=== PATIENT | female | born 1960 | race Caucasian/White ===

== ENCOUNTER 2019-11-11 15:55 | Emergency (ER) | payer OTHER, SELFPAY ==
[2019-11-11 16:24] VITALS: BP 128/74; PULSE 51; RESP 20; TEMP 36.8; O2SAT 98
--- NOTE | 2019-11-11 16:47 | ED.GENADULT ---
HPI - General Adult General Chief complaint: Wound/Laceration Stated complaint: L/hand swollen Time Seen by Provider: 11/11/19 16:48 Source: patient and RN notes reviewed Mode of arrival: ambulatory Limitations: no limitations History of Present Illness HPI narrative: 59-year-old female presents with complaints of redness, warmth, tenderness, and swelling to left 3rd knuckle for up to 7 days. Initially Danielle believes she might have been scratched by one of her cats approximately 30 days ago causing tenderness and swelling. Increase symptoms of redness, warmth, and tenderness now. Ice without relief. Denies radiation of tenderness, redness, or swelling. No exacerbating factors. Denies numbness or tenderness. Denies immobility. Denies open areas or drainage. Denies fever or chills. Denies nausea, vomiting, and abdominal pain. Some parts of this dictation were generated by voice recognition software and may contain typographical and/or grammatical inaccuracies. Related Data Home Medications Medication Instructions Recorded Confirmed levothyroxine 150 mcg DAILY 10/05/19 11/11/19 metoprolol succinate 50 mg PO DAILY 10/05/19 11/11/19 citalopram 10 mg DAILY 11/11/19 11/11/19 Allergies Allergy/AdvReac Type Severity Reaction Status Date / Time No Known Allergies Allergy Verified 11/11/19 16:28 Review of Systems Review of Systems: Narrative: CONSTITUTIONAL: Denies fever, chills, sweats. EYES: Denies visual changes, redness, discharge. ENT: Denies rhinorrhea, congestion, sore throat, otalgia. CARDIOVASCULAR: Denies chest pain, palpitations, edema. RESPIRATORY: Denies dyspnea, wheezing, cough. GASTROINTESTINAL: Denies abdominal pain, nausea, vomiting, diarrhea. GENITOURINARY: Denies dysuria, hematuria, abnormal discharge. SKIN: Complains of redness, swelling, warmth, and tenderness to LT 3rd knuckle. MUSCULOSKELETAL: Denies acute back pain, joint pain, or myalgia. NEUROLOGIC: Denies numbness or focal weakness. PSYCHIATRIC: Denies anxiety or depression. All systems reviewed & are unremarkable except as noted in HPI and below. [facility] Past Medical History Medical History (Updated 11/12/19 @ 00:00 by Background Daemon) Achilles tendon injury LT foot Heel spur Hypertension Hypothyroidism Surgical History Surgical History (Updated 11/11/19 @ 18:13 by ROLAND Raya) Hx of appendectomy Hx of laparoscopic gastric banding Family History Family History (Updated 11/11/19 @ 18:13 by ROLAND Raya) Father Diabetes mellitus Hypertension Mother Hypertension Social History Social History (Updated 11/11/19 @ 18:14 by ROLAND Raya) Smoking status: Former smoker Alcohol intake: never Substance use: never Living arrangements: with family Additional living arrangements comments: Gender identity (if verbalized by the patient): Female Comments At time of signature, agree with nurse past medical, surgical, social, and family history. There is no relevant family history pertinent to the presenting complaint. Exam Narrative: Exam Narrative: GENERAL: This is a well-nourished, well-developed patient, in no apparent distress. HEAD: normocephalic, atraumatic. EYES: PERRL. Sclera clear/white. Vision is grossly intact. CARDIOVASCULAR: Regular rate and rhythm without murmurs, gallops, or rubs. RESPIRATORY: Clear to auscultation. Breath sounds equal bilaterally. No wheezes, rales, or rhonchi. GASTROINTESTINAL: Abdomen soft, non-tender, nondistended. Bowel sounds are active. No hepato-splenomegaly, or palpable masses. No guarding. SKIN: warm, LT 3rd finger to knuckle with induration area with mild-moderate erythema and warmth, no fluctuation, I&D not necessary at this time. Surrounding Cellulitis. Skin intact. No drainage or ecchymosis. Good texture and turgor. NEURO: awake, alert, and oriented to person, place and time. There were no obvious focal neurologic
== END 2019-11-11 17:06 | disposition home or self-care (01) ==
PROVIDERS: Emergency Provider Nurse Practitioner Family
DX: L03.114 Cellulitis of left upper limb (principal); I10 Essential (primary) hypertension; E03.9 Hypothyroidism, unspecified
CPT/HCPCS: 99213; G0463